=== PATIENT | female | born 1950 | race Caucasian/White ===

== ENCOUNTER → 2020-02-13 12:32 | Outpatient (BNVA) | payer MEDICARE, SELFPAY | PROVIDERS: PCP Pediatrics; Visit Provider Physician Assistant | DX: Z47.1 Aftercare following joint replacement surgery (principal); Z48.02 Encounter for removal of sutures; Z96.651 Presence of right artificial knee joint ==

== ENCOUNTER → 2020-03-19 12:24 | Outpatient (BNVA) | payer MEDICARE, SELFPAY | PROVIDERS: PCP Pediatrics; Visit Provider Physician Assistant | DX: Z96.651 Presence of right artificial knee joint (principal); Z88.1 Allergy status to other antibiotic agents; Z88.0 Allergy status to penicillin; Z88.2 Allergy status to sulfonamides | CPT/HCPCS: 99212 ==

== ENCOUNTER 2020-04-26 11:32 | Outpatient (REF) | payer MEDICARE, SELFPAY | END 2020-04-26 11:33 | disposition home or self-care (01) | LOC: HO.HOSX 11:32 | PROVIDERS: Visit Provider Orthopaedic Surgery | DX: Z13.89 Encounter for screening for other disorder (principal) ==

== ENCOUNTER 2020-04-27 10:36 | Outpatient (REF) | payer MEDICARE, SELFPAY ==
--- NOTE | 2020-04-27 10:37 | XR_ITS ---
EXAMINATION: XR BILATERAL KNEES XR RIGHT KNEE CLINICAL INFORMATION: Knee pain. COMPARISON: 01/28/2020 TECHNIQUE: AP bilateral knees one view. Right knee 2 views. FINDINGS: Right Knee: Stable positioning and alignment of the right total knee arthroplasty. No evidence of hardware failure or acute periprosthetic fracture. Small suprapatellar joint fluid. Left Knee: Mild medial compartment arthritis. XR/XR knee RT 2V IMPRESSION: Stable position and alignment of the right total knee arthroplasty. No evidence of hardware failure.
--- NOTE | 2020-04-27 10:37 | XR_ITS ---
EXAMINATION: XR BILATERAL KNEES XR RIGHT KNEE CLINICAL INFORMATION: Knee pain. COMPARISON: 01/28/2020 TECHNIQUE: AP bilateral knees one view. Right knee 2 views. FINDINGS: Right Knee: Stable positioning and alignment of the right total knee arthroplasty. No evidence of hardware failure or acute periprosthetic fracture. Small suprapatellar joint fluid. Left Knee: Mild medial compartment arthritis. XR/XR knee standing BI IMPRESSION: Stable position and alignment of the right total knee arthroplasty. No evidence of hardware failure.
== END 2020-04-27 10:37 | disposition home or self-care (01) ==
LOC: HO.HOSX 10:36
PROVIDERS: Visit Provider Orthopaedic Surgery
DX: M25.569 Pain in unspecified knee (principal); Z96.659 Presence of unspecified artificial knee joint
CPT/HCPCS: 73560; 73565; 99212

== ENCOUNTER → 2020-07-27 10:07 | Outpatient (BNVA) | payer MEDICARE, SELFPAY | PROVIDERS: PCP Pediatrics; Visit Provider Orthopaedic Surgery | DX: Z96.659 Presence of unspecified artificial knee joint (principal) | CPT/HCPCS: 99212 ==

== ENCOUNTER 2021-09-23 07:42 | Outpatient (REF) | payer MEDICARE, SELFPAY ==
--- NOTE | ~2021-09-23 | XR_ITS ---
EXAMINATION: BILATERAL KNEE X-RAY CLINICAL INFORMATION: Post knee replacement. COMPARISON: Previous x-ray April 2020 TECHNIQUE: Standing AP view of both knees and lateral and sunrise view of the right knee FINDINGS: Right: Bone alignment is normal. No fracture, dislocation or x-ray evidence of loosening is seen. There is a small joint effusion and soft tissue swelling about the knee.. Standing AP view of the left knee demonstrates medial femoral tibial joint space narrowing. XR/XR knee standing BI IMPRESSION: Right: Satisfactory appearance of right knee replacement. Small joint effusion and soft tissue swelling.
--- NOTE | ~2021-09-23 | XR_ITS ---
EXAMINATION: BILATERAL KNEE X-RAY CLINICAL INFORMATION: Post knee replacement. COMPARISON: Previous x-ray April 2020 TECHNIQUE: Standing AP view of both knees and lateral and sunrise view of the right knee FINDINGS: Right: Bone alignment is normal. No fracture, dislocation or x-ray evidence of loosening is seen. There is a small joint effusion and soft tissue swelling about the knee.. Standing AP view of the left knee demonstrates medial femoral tibial joint space narrowing. XR/XR knee RT 2V IMPRESSION: Right: Satisfactory appearance of right knee replacement. Small joint effusion and soft tissue swelling.
== END 2021-09-23 07:43 | disposition home or self-care (01) ==
LOC: HO.HOSX 07:42
PROVIDERS: Visit Provider Orthopaedic Surgery
DX: M25.561 Pain in right knee (principal); S80.01XA Contusion of right knee, initial encounter; W01.0XXA Fall on same level from slipping, tripping and stumbling without subsequent striking against object, initial encounter; Y93.9 Activity, unspecified; Y92.9 Unspecified place or not applicable; Y99.8 Other external cause status; E78.5 Hyperlipidemia, unspecified; E78.00 Pure hypercholesterolemia, unspecified; Z96.651 Presence of right artificial knee joint; Z88.1 Allergy status to other antibiotic agents; Z88.0 Allergy status to penicillin; Z88.2 Allergy status to sulfonamides
CPT/HCPCS: 73560; 73565; 99212

== ENCOUNTER 2022-11-10 12:47 | Outpatient (REF) | payer MEDICARE, SELFPAY | END 2022-11-10 12:48 | disposition home or self-care (01) | LOC: HO.SH 12:47 | PROVIDERS: Visit Provider Pediatrics | DX: Z01.118 Encounter for examination of ears and hearing with other abnormal findings (principal); H90.3 Sensorineural hearing loss, bilateral | CPT/HCPCS: 92557; 92567 ==